=== PATIENT | male | born 1965 | race Hispanic/Latino ===

== ENCOUNTER 2018-01-18 03:53 | Emergency (ER) | payer OTHER ==
[~2018-01-18] VITALS: Ht 170.2 cm; Wt 135.6 kg
[~2018-01-18 03:53] MED LIST: AMLODIPINE BESYL5 MG PO; BENZONATATE200 MG PO; BYSTOLIC10 MG PO; GLIMEPIRIDE2 MG PO; KEFLEX250 MG; KEFLEX500 MG PO; LEVAQUIN500 MG PO; LOPERAMIDE2 MG PO; LOSARTAN POTASS25 MG; LOSARTAN POTASS50 MG PO; PREDNISONE20 MG PO; PROMETHAZINE-D118 ML PO; RANITIDINE HCL150 M1 PO; SIMVASTATIN20 MG PO; SIMVASTATIN80 MG PO; TAMSULOSIN HCL0.4 MG PO; TIZANIDINE HCL4 MG PO; VIAGRA100 MG PO; XIGDUO PO
[2018-01-18] MEDS ORDERED: ORPHENADRINE CITRATE 30 MG/ML VIAL IM ONE (04:15)
== END 2018-01-18 04:47 | disposition home or self-care (01) ==
LOC: ER 03:53
DX: M54.41 Lumbago with sciatica, right side (principal); I10 Essential (primary) hypertension; E11.9 Type 2 diabetes mellitus without complications; E78.5 Hyperlipidemia, unspecified; Z87.442 Personal history of urinary calculi
CPT/HCPCS: 99283; J2360

== ENCOUNTER → 2018-06-06 | Outpatient (CLI) | payer OTHER ==
--- NOTE | 2018-06-06 16:33 | Diagnostic Imaging Report ---
Exam: Right shoulder radiographs - 2 views History: Right shoulder impingement. Comparison: None. Findings: Mild degenerative changes of the right glenohumeral and acromioclavicular joints. No evidence of acute fracture, malalignment, or soft tissue abnormality. 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 No acute osseous abnormality. Signed by: Dr. Josh Hopkins MD on 06/06/2018 2:54 PM
== END ==
LOC: RAD 13:21
PROVIDERS: ATTEND Family Medicine
DX: M75.41 Impingement syndrome of right shoulder (principal)

== ENCOUNTER 2018-07-10 09:30 | Emergency (ER) | payer OTHER ==
[~2018-07-10] VITALS: Ht 170.2 cm; Wt 135.6 kg
--- OUTSIDE RECORDS SUMMARY | 2018-07-10 09:32 | XMS REPORT ---
Author Author [facility] Address Unknown Phone Unavailable Care Team Providers Care Cement Finisher Helper Name Role Phone Puneet WASHINGTON Unavailable Unavailable Problems This patient has no known problems. Allergies, Adverse Reactions, Alerts This patient has no known allergies or adverse reactions. Medications This patient has no known medications. Results Test Description Test Time Test Comments Text Results Atomic Results Result Comments SHOULDER RIGHT COMPLETE 2018-06-06 14:50:00 [place] [address] Patient Name: MICHELLE MANRIQUEZ MR #: [id number] : 1965 Age/Sex: 52/M Req #: [id number] [facility] Physician: Ordered by: FRANCISCO WASHINGTON MD Report #: [id number] Location: [facility] Room/Bed: Procedure: [id number] DX/SHOULDER RIGHT COMPLETE Exam Date: 06/06/18 Exam Time: 1335 REPORT STATUS: Signed Exam: Right shoulder radiographs - 2 views History: Right shoulder impingement. Comparison: None. Findings: Mild degenerative changes of the right glenohumeral and acromioclavicular joints. No evidence of acute fracture, malalignment, or soft tissue abnormality. 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 No acute osseous abnormality. Signed by: Dr. Micheline Hopkins MD on 06/06/2018 2:54 PM Dictated By: MICHELINE HOPKINS MD [id number] Transcribed By: LAUREANO on 06/06/18 1836 COPY TO: FRANCISCO WASHINGTON MD
[2018-07-10] MEDS ORDERED: SODIUM CHLORIDE 0.9% 1000ML 1,000 ML IV STA (09:57)
[2018-07-10 10:14] LABS: BASOPHILS # (AUTO) 0.1 (0.0-0.1); BASOPHILS % 0.6 % (0.0-1.0); EOSINOPHILS # (AUTO) 0.1 (0.0-0.4); EOSINOPHILS % 1.3 % (0.0-6.0); HEMATOCRIT 44.4 % (38.2-49.6); HEMOGLOBIN 14.7 g/dL (14.0-18.0); LYMPHOCYTES # (AUTO) 1.7 (1.0-3.2); LYMPHOCYTES % 16.6 % (18.0-39.1); MEAN CORPUSCULAR HEMOGLOBIN 29.7 pg (28-32); MEAN CORPUSCULAR HGB CONC 33.1 g/dL (31-35); MEAN CORPUSCULAR VOLUME 89.7 fL (81-99); MONOCYTES # (AUTO) 0.6 (0.2-0.8); MONOCYTES % 6.3 % (4.4-11.3); NEUTROPHILS # (AUTO) 7.6 (2.1-6.9); NEUTROPHILS % 74.8 % (38.7-80.0); PLATELET COUNT 258 x10e3/uL (140-360); RED BLOOD COUNT 4.95 x10e6/uL (4.3-5.7); RED CELL DISTRIBUTION WIDTH 12.9 % (11.7-14.4)
[2018-07-10 10:28] LABS: BILIRUBIN,URINE NEGATIVE (NEGATIVE); CLARITY,URINE HAZY (CLEAR); COLOR,URINE YELLOW (YELLOW); KETONES,URINE NEGATIVE (NEGATIVE); LEUKOCYTE ESTERASE ,URINE TRACE (NEGATIVE); NITRITE,URINE NEGATIVE (NEGATIVE); PROTEIN,URINE DIPSTICK 1+ (NEGATIVE); URINE UROBILINOGEN 0.2 mg/dL (0.2 - 1); WBC,URINE (MAN) 0-5 /HPF (0-5)
[2018-07-10 10:29] LABS: AMORPHOUS SEDIMENT,URINE FEW (FEW); RBC,URINE >50 /HPF (0-5)
[2018-07-10] MEDS ORDERED: ONDANSETRON HCL INJ 2MG/ML 2ML 2 MG/ML VIAL IV ONE ×2 (10:30→14:30)
[2018-07-10] MEDS ORDERED: KETOROLAC TROMETHAMINE 30 MG/ML VIAL IV ONE (10:30)
[2018-07-10 10:52] LABS: ALBUMIN 3.8 g/dL (3.5-5.0); ALBUMIN/GLOBULIN RATIO 1.3 (0.8-2.0); ANION GAP 14.9 mmol/L (8-16); CALCIUM 9.7 mg/dL (8.4-10.2); CREATININE, SERUM 1.64 mg/dL (0.72-1.25); MAGNESIUM 1.8 MG/DL (1.3-2.1); POTASSIUM 3.9 mmol/L (3.5-5.1)
[2018-07-10] MEDS: MORPHINE SULFATE INJ 4 MG/ML INJ 1ML IV ONE ×2 (14:07→14:49)
--- NOTE | 2018-07-10 14:42 | Diagnostic Imaging Report ---
EXAM: CT Abdomen and Pelvis WITHOUT contrast INDICATION: Stone protocol. COMPARISON: None. TECHNIQUE: Abdomen and pelvis were scanned utilizing a multidetector helical scanner from the lung base to the pubic symphysis without administration of IV contrast. Absence of intravenous contrast decreases sensitivity for detection of focal lesions and vascular pathology. Coronal and sagittal reformations were obtained. Renal stone protocol was performed. IV CONTRAST: None. ORAL CONTRAST: Water RADIATION DOSE: Total DLP: 1394.7 mGy*cm Estimated effective dose: (DLP x 0.015 x size factor) mSv COMPLICATIONS: None FINDINGS: LINES and TUBES: None. LOWER THORAX: Coronary atherosclerosis. HEPATOBILIARY: No focal hepatic lesions. No biliary ductal dilation. GALLBLADDER: No radio-opaque stones or sludge. No wall thickening. SPLEEN: No splenomegaly. PANCREAS: Fatty atrophy of the pancreas. No definite mass. ADRENALS: No adrenal nodules KIDNEYS/URETERS: There is mild right hydroureter without significant hydronephrosis. There are two adjacent 4 mm obstructing right mid ureteral stones on series 3, images 146 and 153. There is mild right perinephric and periureteral stranding. There is a 6 mm right mid pole non-obstructing stone and a 7 mm right lower pole non-obstructing stone. There are punctate nonobstructing 3 mm left upper pole and 1 mm left lower pole renal stones. No evidence of left-sided hydronephrosis. The left kidney appears mildly atrophic. No evidence of solid mass, although evaluation is limited in the absence of IV contrast. GI TRACT: No abnormal distention, wall thickening, or evidence of bowel obstruction. Appendix is normal. PELVIC ORGANS/BLADDER: Unremarkable. LYMPH NODES: No lymphadenopathy. VESSELS: There are scattered atherosclerotic calcifications in the aorta and branch vessels. PERITONEUM / RETROPERITONEUM: No free air or fluid. BONES: Mild age indeterminate anterior loss of vertebral body height at T11. No suspicious lytic or blastic lesions. IMPRESSION: Two obstructing 4 mm right mid ureteral stones with mild hydroureter and no significant hydronephrosis. Mild right perinephric and periureteral stranding could reflect infectious/inflammatory process and could be correlated with UA. Additional non-obstructing bilateral renal stones measuring up to 7 mm on the right and 3 mm on the left. Signed by: Dr. Josh Hopkins MD on 07/10/2018 2:39 PM
[2018-07-10] MEDS ORDERED: TRESIVA SC (15:07)
[2018-07-10] MEDS ORDERED: OMEPRAZOLE40 MG PO (15:07)
[2018-07-10] MEDS ORDERED: LOSARTAN POTASS25 MG PO (15:07)
[2018-07-10] MEDS ORDERED: BYSTOLIC10 MG PO (15:07)
[2018-07-10] MEDS ORDERED: ALLOPURINOL300 MG PO (15:07)
[2018-07-10] MEDS ORDERED: LIPITOR10 MG PO (15:07)
[2018-07-10] MEDS ORDERED: METFORMIN HCL500 MG PO (15:07)
[2018-07-10 15:47] VITALS: BP 145/73
== END 2018-07-10 15:59 | disposition home or self-care (01) ==
LOC: ER 09:30
DX: M54.5 Low back pain (principal); R10.31 Right lower quadrant pain; R11.0 Nausea; R31.9 Hematuria, unspecified; N20.1 Calculus of ureter; I10 Essential (primary) hypertension; E11.9 Type 2 diabetes mellitus without complications; E78.5 Hyperlipidemia, unspecified; G89.29 Other chronic pain
CPT/HCPCS: 36415; 74176; 80053; 81001; 83690; 83735; 85025; 87086; 99284; J1885; J2270; J2405; J7030

== ENCOUNTER 2018-09-14 16:10 | Observation (INO) | payer OTHER ==
[~2018-09-14] VITALS: Ht 170.2 cm; Wt 135.6 kg
[~2018-09-14 16:10] MED LIST changes: +ALLOPURINOL300 MG PO; +LIPITOR10 MG PO; +LOSARTAN POTASS25 MG PO; +METFORMIN HCL500 MG PO; +OMEPRAZOLE40 MG PO; +TRESIVA SC
--- OUTSIDE RECORDS SUMMARY | 2018-09-14 16:13 | XMS REPORT | Clinical Summary ---
Author Author [facility] Address Unknown Phone Unavailable Care Team Providers Care Nail Specialist Name Role Phone Barak Youngblood MD PCP Allergies Not on File Medications Not on file Active Problems Not on file Encounters Care Team Description Date Type Specialty Aime Herrera MD Kidney stone 07/22/2018 Hospital Radiology Encounter Aime Herrera MD Kidney stone (Primary Dx) 07/22/2018 Transcribe Access Orders after 09/13/2017 Social History Date Tobacco Use Types Packs/Day Years Used Never Assessed Sex Assigned at Date Recorded Not on file Industry Job Start Date Occupation Not on file Not on file Not on file Travel End Travel History Travel Start No recent travel history available. Last Filed Vital Signs Not on file Plan of Treatment Health Maintenance Due Date Last Done Comments COLON CANCER SCREENING 08/03/2015 SHINGLES VACCINES (#1) 08/03/2015 INFLUENZA VACCINE 12/22/2018 Procedures Comments Procedure Name Priority Date/Time Associated Diagnosis XR KUB KIDNEY URETER Routine 07/22/2018 Kidney stone BLADDER 10:11 AM HEAVY EQUIPMENT MECHANIC after 09/13/2017 Results * XR Kub Kidney Ureter Bladder (07/22/2018 10:11 AM HEAVY EQUIPMENT MECHANIC) Narrative Performed At EXAMINATION:XR KUB KIDNEY URETER BLADDER RADIANT CLINICAL HISTORY:N20.0 Calculus of kidney, N20.0 COMPARISON:None IMPRESSION: No definite renal calculi can be identified.There is a generally nonspecific bowel gas pattern. [id number] Procedure Note Hm Interface, Radiology Results Incoming - 07/22/2018 10:57 AM HEAVY EQUIPMENT MECHANIC EXAMINATION: XR KUB KIDNEY URETER BLADDER CLINICAL HISTORY: N20.0 Calculus of kidney, N20.0 COMPARISON: None IMPRESSION: No definite renal calculi can be identified. There is a generally nonspecific bowel gas pattern. [facility]-[id number] Performing Organization Address City/State/Zipcode Phone Number [place] [address] [place] [address] after 09/13/2017 Insurance Payer Benefit Subscriber ID Type Phone Address Plan / Group [facility] xxxxxxxxx HMO/PPO THCARE CHOICE/CHO ICE + Advance Directives Patient has advance care planning documents on file. For more information, tramaine garza contact: Regulo Randall [address] [place] [address]
[2018-09-14 17:13] LABS: BASOPHILS # (AUTO) 0.1 (0.0-0.1); BASOPHILS % 0.7 % (0.0-1.0); EOSINOPHILS # (AUTO) 0.2 (0.0-0.4); EOSINOPHILS % 1.7 % (0.0-6.0); HEMATOCRIT 41.1 % (38.2-49.6); HEMOGLOBIN 12.6 g/dL (14.0-18.0); LYMPHOCYTES # (AUTO) 1.3 (1.0-3.2); LYMPHOCYTES % 14.4 % (18.0-39.1); MEAN CORPUSCULAR HEMOGLOBIN 29.3 pg (28-32); MEAN CORPUSCULAR HGB CONC 30.7 g/dL (31-35); MEAN CORPUSCULAR VOLUME 95.6 fL (81-99); MONOCYTES # (AUTO) 0.7 (0.2-0.8); MONOCYTES % 7.6 % (4.4-11.3); NEUTROPHILS # (AUTO) 6.7 (2.1-6.9); NEUTROPHILS % 75.3 % (38.7-80.0); PLATELET COUNT 234 x10e3/uL (140-360); RED CELL DISTRIBUTION WIDTH 13.6 % (11.7-14.4)
[2018-09-14 17:16] LABS: CLARITY,URINE SL CLOUDY (CLEAR); COLOR,URINE YELLOW (YELLOW); LEUKOCYTE ESTERASE ,URINE NEGATIVE (NEGATIVE); NITRITE,URINE NEGATIVE (NEGATIVE)
[2018-09-14 17:17] LABS: BILIRUBIN,URINE NEGATIVE (NEGATIVE); KETONES,URINE NEGATIVE (NEGATIVE); PROTEIN,URINE DIPSTICK TRACE (NEGATIVE); URINE UROBILINOGEN 0.2 mg/dL (0.2 - 1)
[2018-09-14 17:24] LABS: BACTERIA,URINE FEW /HPF; EPITHELIAL CELLS,URINE RARE /LPF; MUCUS,URINE FEW (RARE)
[2018-09-14 17:28] LABS: INR 0.85; PROTHROMBIN TIME 12.1 seconds (11.9-14.5)
[2018-09-14 17:29] LABS: PARTIAL THROMBOPLASTIN TIME 25.8 seconds (23.8-35.5)
--- NOTE | 2018-09-14 17:32 | Diagnostic Imaging Report ---
EXAM: CHEST 2 VIEWS DATE: 09/14/2018 4:22 PM INDICATION:Left arm tingling COMPARISON: No prior chest examination available on PACS. FINDINGS: Lines and tubes: None Heart size normal. No focal pulmonary opacity, pleural effusion or pneumothorax. Upper abdomen unremarkable. No acute bony abnormality. There is mild wedging of the T12 vertebral body, which may be congenital or represent trauma of indeterminate age. IMPRESSION: No evidence for acute disease. Signed by: Dr. William Fajardo M.D. on 09/14/2018 5:29 PM
[2018-09-14 17:36] LABS: ALANINE AMINOTRANSFERASE 38 IU/L (0-55); ALBUMIN 3.3 g/dL (3.5-5.0); ALBUMIN/GLOBULIN RATIO 0.9 (0.8-2.0); ALKALINE PHOSPHATASE 85 IU/L (40-150); ANION GAP 12.9 mmol/L (8-16); BLOOD UREA NITROGEN 20 mg/dL (7-26); BUN/CREATININE RATIO 15 (6-25); CALCIUM 9.7 mg/dL (8.4-10.2); CARBON DIOXIDE 24 mmol/L (22-29); CHLORIDE 103 mmol/L (98-107); CREATINE KINASE 137 IU/L (30-200); CREATININE, SERUM 1.32 mg/dL (0.72-1.25); EST GLOMERULAR FILTRATION RATE 57 ML/MIN (60-); GLUCOSE 220 mg/dL (74-118); POTASSIUM 3.9 mmol/L (3.5-5.1); SODIUM 136 mmol/L (136-145)
[2018-09-14] MEDS ORDERED: SODIUM CHLORIDE 0.9% 500ML 500 ML IV STA (18:08)
--- NOTE | 2018-09-14 19:36 | Diagnostic Imaging Report ---
CT CHEST WITH CONTRAST HISTORY: Shortness of breath, pe protocol COMPARISON: None TECHNIQUE: CT scan of the chest WITH intravenous contrast, using standard protocol. Coronal and sagittal reformats are provided. IV CONTRAST: 100 cc of Isovue-370. RADIATION DOSE: Total DLP: 668.51 mGy*cm Dose modulation, iterative reconstruction, and/or weight based adjustment of the mA/kV was utilized to reduce the radiation dose to as low as reasonably achievable. COMPLICATIONS: None FINDINGS: Soft tissue attenuation partially limits sensitivity of the exam. Lines/tubes: None. Lungs and Airways: Low lung volumes result in bibasilar vascular crowding, accentuation of the pulmonary interstitial markings, central pulmonary vasculature, and the cardiac silhouette. Allowing for these limitations, the findings are as follows: A 4 mm right lower lobe pulmonary nodule. No consolidative pneumonia. Pleura: No effusion or pneumothorax. Heart and mediastinum: The thyroid gland is normal. Borderline cardiomegaly. Trace pericardial fluid. Abdomen: Limited evaluation of the upper abdomen. A 6 mm nonobstructing stone near the superior pole the left kidney. Lymph nodes: No pathologically enlarged lymph node identified. Vessels: Enlargement of the main pulmonary artery, 4.6 cm and the right pulmonary artery, 2.9 cm. Scattered atherosclerotic vascular calcifications, including the coronary arteries. Bones: No acute osseous lesion is identified. Healed left-sided rib fracture deformities. Mild thoracic kyphosis with minimal to mild multilevel degenerative disc changes. Soft tissues: Unremarkable IMPRESSION: 1. No pulmonary embolus. 2. An indeterminant 4 mm right lower lobe pulmonary nodule. In a patient with a significant smoking history or known malignancy, recommend a follow-up CT the chest without contrast in one year for surveillance. 3. Enlarged pulmonary arteries suggestive of increased pulmonary arterial pressure. 4. Coronary atherosclerosis. 5. A 6 mm nonobstructing left renal stone. Signed by: Dr. Jacinto Jennings D.O., M.M.M. on 09/14/2018 7:33 PM
[2018-09-14] MEDS ORDERED: ASPIRIN 81 MG CHEW TAB PO ONE (19:45)
--- OUTSIDE RECORDS SUMMARY | 2018-09-14 19:59 | XMS REPORT | Clinical Summary ---
Author Author [facility] Address Unknown Phone Unavailable Care Team Providers Care Radiology Aide Name Role Phone Barak Youngblood MD PCP [...] Routine 07/22/2018 Kidney stone BLADDER 10:11 AM MAINTENANCE MECHANIC after 09/13/2017 Results * XR Kub Kidney Ureter Bladder (07/22/2018 10:11 AM MAINTENANCE MECHANIC) Narrative Performed At EXAMINATION:XR KUB KIDNEY URETER BLADDER RADIANT CLINICAL HISTORY:N20.0 Calculus of kidney, N20.0 COMPARISON:None IMPRESSION: No definite renal calculi can be identified.There is a generally nonspecific bowel gas pattern. [id number] Procedure Note Hm Interface, Radiology Results Incoming - 07/22/2018 10:57 AM MAINTENANCE MECHANIC EXAMINATION: XR KUB KIDNEY URETER BLADDER CLINICAL HISTORY: N20.0 Calculus of kidney, N20.0 COMPARISON: None IMPRESSION: No definite renal calculi can be identified. There is a generally nonspecific bowel gas pattern. [facility]-[id number] Performing Organization Address City/State/Zipcode Phone Number [facility] [address] [place] [address] after 09/13/2017 Insurance Payer Benefit Subscriber ID Type Phone Address Plan / Group [facility] xxxxxxxxx HMO/PPO THCARE CHOICE/CHO ICE + Advance Directives Patient has advance care planning documents on file. For more information, tramaine garza contact: Regulo Randall [address] [place] [address]
[2018-09-14] MEDS ORDERED: DEXTROSE 50% SYRINGE 50 ML IV PRN (20:30)
[2018-09-14] MEDS ORDERED: HYDRALAZINE HCL 20 MG/ML VIAL IV PRN (20:30)
[2018-09-14] MEDS ORDERED: SODIUM CHLORIDE 0.9% 1000ML 1,000 ML ONE (21:43)
[2018-09-14] MEDS: INSULIN REGULAR, HUMAN 100 UNIT/1 ML 3ML VIAL SQ SCH (21:50)
[2018-09-14] MEDS ORDERED: IOPAMIDOL 370 MG/ML 200 ML INFUS..BTL INJ ONE (22:39)
[2018-09-14] MEDS ORDERED: SODIUM CHLORIDE 0.9% 50ML 50 ML ONE (22:39)
--- NOTE | 2018-09-14 22:44 | NUR ---
Pt arrived to the unit from er in admission assessment done a stretcher with c/o shortness of breath.aaox4.ambulates.Tele #[address] #18 g is patent.oriented to the unit.bed locked and in lowest position.phone and call light within reach.
[2018-09-14 22:46] VITALS: BP 144/71
[2018-09-14 23:00] VITALS: BP_SYST 144; BP_SYST 147; BP_DIAS 69; BP_DIAS 71
--- NOTE | 2018-09-15 02:02 | NUR ---
Pt is using his own c pap .
[2018-09-15 04:00] VITALS: BP 138/79
[2018-09-15 06:27] LABS: CREATINE KINASE 104 IU/L (30-200)
--- NOTE | 2018-09-15 06:50 | NUR ---
REPORT GIVEN TO THE ONCOMING RN.WALKING ROUNDS DONE.STABLE CONDITION.
[2018-09-15 06:54] LABS: CHOL/HDL RATIO 3.2 (3.9-4.7)
[2018-09-15] MEDS ORDERED: PANTOPRAZOLE SOD 40 MG TABEC PO SCH (07:30)
[2018-09-15] MEDS: INSULIN REGULAR, HUMAN 100 UNIT/1 ML 3ML VIAL SQ SCH ×2 (07:30→11:58)
--- NOTE | 2018-09-15 07:35 | NUR ---
RECEIVED PATIENT AWAKE RESTING IN BED NO SIGNS OF DISTRESS AT THIS TIME. CALL LIGHT IN REACH WILL CONTINUE TO MONITOR.
--- NOTE | 2018-09-15 07:49 | History and Physical ---
REASON FOR ADMISSION: The patient comes in with shortness of breath and dyspnea on exertion. HISTORY OF PRESENTING ILLNESS: Mr. Earnest Medellin is a 53-year-old gentleman with a history of shortness of breath. This has been started about a week ago. The patient was in my office, spirometry was done, which was normal. The patient had EKG, which showed some EKG changes. The patient was given referral to Dr. Santiago and was supposed to see Dr. Santiago on Wednesday. The patient went home and on ambulation, the shortness of breath exacerbated and the patient came into the emergency room with acute shortness of breath and dyspnea. No chest pain recorded, however, the patient does have some pain in the left arm after exertion. PAST MEDICAL HISTORY: History of gout, history of hypertension, history of hyperlipidemia, history of diabetes mellitus, uncontrolled; history of reflux esophagitis, and also history of ARAT. MEDICATIONS: Include allopurinol 300 mg daily, amlodipine 5 mg daily, atorvastatin 10 mg daily, glimepiride 2 mg daily, losartan 25 mg daily, metformin 500 mg daily, nebivolol 10 mg of Bystolic daily, omeprazole 40 mg daily, Viagra 100 mg daily, and also Tresiba 10 units at nighttime for diabetes control. PAST SURGICAL HISTORY: History of multiple kidney stones and one stent put in. Otherwise, dental surgeries. ALLERGIES: NO DRUG ALLERGIES NOTED. SOCIAL HISTORY: No smoker. No EtOH. No IV drug abuse. Lives with and recent history of upper respiratory tract infection also noted. FAMILY HISTORY: History of diabetes and history of hypertension. PHYSICAL EXAMINATION: GENERAL: The patient is alert and oriented x3. No acute distress at this time. The patient is also morbidly obese. VITAL SIGNS: Temperature is 96.8, pulse of 44, respirations of 22, blood pressure is 133/79, pulse oximetry of 96%. The patient also has additional history of sleep apnea. HEENT: Normocephalic and atraumatic. CVS: S1 and S2 distant, bradycardic. ABDOMEN: Nontender and nondistended. EXTREMITIES: Positive for 1+ edema bilaterally. LABORATORY VALUES: The patient's white count is 8.85, hemoglobin of 12.6, hematocrit of 44.1. Chemistries; sodium of 136, potassium 3.9, BUN 20, creatinine of 1.32, estimated GFR is 57, glucose of 220. CK, CK-MB, and troponin have been negative. LDL and HDL are pending at this time. Additional laboratory studies show a D-dimer of 0.67. PT/INR was normal. IMAGING: Chest CT shows no acute pulmonary embolism, indeterminate 4 mm lower lung lobe nodule, enlarged pulmonary arteries, increased pulmonary arterial pressure, coronary arthrosclerosis, and a 6 mm nonobstructing left renal stone. ASSESSMENT: 1. Acute dyspnea on exertion. 2. History of sleep apnea. 3. Obesity, hypoventilation syndrome. 4. Elevated D-dimer. 5. Uncontrolled diabetes mellitus. PLAN: With a CT negative and with all the risk factors, the patient needs cardiac workup, a consultation with Dr. Santiago has been established. Further recommendation per clinical course. With diabetes and hypertension and all the comorbidities, the patient will need cardiac testing. We will discuss with Dr. Santiago. Further recommendations per clinical course. MD LIONEL Gustafson/JENNIFERL /[id number]
[2018-09-15] MEDS ORDERED: GLIMEPIRIDE 2 MG TAB PO SCH (08:00)
[2018-09-15 08:04] VITALS: BP 171/77
[2018-09-15] MEDS ORDERED: LOSARTAN POTASSIUM 25 MG TAB PO SCH (09:00)
[2018-09-15] MEDS ORDERED: ASPIRIN 325 MG TAB EC PO SCH (09:00)
[2018-09-15] MEDS ORDERED: ALLOPURINOL 300 MG TAB PO SCH (09:00)
[2018-09-15] MEDS ORDERED: AMLODIPINE BESYLATE 5 MG TAB PO SCH (09:00)
[2018-09-15] MEDS ORDERED: INSULIN GLARGINE 100 UNITS/ML VIAL SQ SCH (09:00)
--- NOTE | 2018-09-15 10:25 | NUR ---
CASE MANAGEMENT ASSESSMENT Dumbwaiter Operator to bedside to discuss plan of care with patient/family. CM/SW role and care transitions discussed. Anticipated discharge plan discussed along with duration of care. CM/SW discussed patients right to make decisions in care. CM/SW work hours given. Patient lives: with Gracia Admit/Transfer: thru ED Hospital/ER visits since last admit: went to ER in June of this year for kidney stones, was not admitted. No other ER visits POA/Emergency contact: Gracia Medellin [phone] Current/Previous Home Health: none PCP/Follow-up Care: Dr. Youngblood - PCP; advised pt to follow up with MD within 7 days of discharge. Current/Previous DME: CPAP, nebulizer Medications (referring to index hospitalization or the first time you were in the hospital) a. Were changes made in your medications when you were in the hospital on [date of index hospitalization]? n/a b. Did you understand the changes? n/a c. Were you able to obtain your new medications right away? n/a d. Were you able to take your medications like the doctor wanted you to? n/a e. Did the hospital give you an accurate, easy to understand list of medications when you left? n/a Scale of 1-10 how comfortable does patient feel with disease management in outpatient settin Other Services: none Employment Status: employed with [employer] Areas of Concerns: chest pain Referral Needs: none Education Needs: medical management IMM/OLIVEIRA given and signed (if applicable): n/a Goal for discharge: home and back to work CM/SW left business card at the bedside with contact information. Name and number was also written on the patients whiteboard. Patient verbalized understanding of discussion. CM will follow-up with ongoing discharge and transition of care needs.
[2018-09-15 10:36] VITALS: BP 171/77
[2018-09-15 12:02] VITALS: BP 167/81
[2018-09-15] MEDS ORDERED: CLOPIDOGREL BISULFATE 75 MG TAB PO NR (12:30)
--- NOTE | 2018-09-15 15:10 | NUR ---
REMOVED PATIENTS IV. CATHETER TIP INTACT AND PRESSURE DRESSING APPLIED.
--- NOTE | 2018-09-15 15:18 | NUR ---
PATIENT DISCHARGED FROM FACILITY. PATIENT GATHERED ALL PERSONAL BELONGINGS, DISCHARGE INFORMATION, AND FOLLOW UP INFORMATION. PATIENT LEFT UNIT IN WHEELCHAIR AND WENT HOME VIA PRIVATE AUTO.
--- NOTE | 2018-09-15 19:59 | Consultation ---
DATE OF CONSULTATION: 09/15/2018 REASON FOR CONSULTATION: Chest pain. CHIEF COMPLAINT: Left arm pain, shortness of breath. HISTORY OF PRESENT ILLNESS: This is a 53-year-old male with history of hypertension, diabetes, cholesterol, morbid obesity, sleep apnea using CPAP, and kidney stones. The patient presents to [facility] ER with complaints of shortness of breath and left arm pain, tightness. Cardiology was consulted to evaluate the patient. The patient is seen in room, in no acute distress at this moment, however, does report on Wednesday, he has been short of breath, went to go see his PCP, when she has given a neb treatment, which he states shortness of breath was better. However, yesterday, he was at [facility], states that he became more short of breath and started to have some left arm pain, tightness. Therefore, he went home. However, his told him to go to the hospital and get further evaluated. He reports that the pain has subsided and is relieved after rest. However, he does report he is very short of breath with minimal activities that he has noticed for the past couple weeks. PAST MEDICAL HISTORY: Hypertension, hyperlipidemia, diabetes greater than 10 years, reflux, morbid obesity, kidney stones, and LISA. SURGICAL HISTORY: Denies any surgeries. ALLERGIES: DENIES ANY ALLERGIES. FAMILY HISTORY: Mother at age 40 apparently with? kidney failure. Father is alive at 75 years of age, apparently he had a history of stroke. He has one brother with history of kidney stones. SOCIAL HISTORY: He is . He works at [employer]. He rarely drinks alcohol and denies any alcohol or tobacco use. HOME MEDICATIONS: Include allopurinol 300 mg daily, Norvasc 10 mg daily, atorvastatin 10 mg daily, glimepiride 2 mg daily, losartan 25 mg daily, metformin 500 mg b.i.d., Bystolic 5 mg daily, omeprazole 40 mg daily, and Viagra 100 mg daily. REVIEW OF SYSTEMS: GENERAL: Denies any weight changes. Denies any fevers, chills, or night sweats. SKIN: No rashes or bruises. HEENT: Denies any nausea, vomiting, or vision changes. Positive for blurred vision. Denies any earaches, any epistaxis, bleeding gums, sore throat, or swollen neck. CARDIAC: Positive for anginal symptoms. Positive for dyspnea on exertion. Positive for orthopnea. Denies any PND or lower extremity edema. RESPIRATORY: Positive for shortness of breath. Denies any coughing or hemoptysis. GI: Reports good appetite. Denies any nausea, vomiting, any bleeding, hematemesis, melena, hematochezia, or abdominal pain. URINARY: Denies any urgency. Positive for frequency. Denies any dysuria or hematuria. VASCULAR: Denies any lower extremity edema or claudication. MUSCULOSKELETAL: Positive for generalized joint pains and back pain. NEUROLOGIC: Denies any numbness, tingling, tremors, blackouts, or seizures. HEMATOLOGY: Denies any anemia or easy bruising. ENDOCRINE: Denies any heat or cold intolerance, any polyuria, polydipsia, or polyphagia. PHYSICAL EXAMINATION: VITAL SIGNS: Temperature 97.8, pulse 51, respiratory rate 20, blood pressure 167/81, and pulse ox 98% on room air. GENERAL: Appears stated age, reliable informant. SKIN PAYNE: No rashes or bruises noted. HEENT: Normocephalic. Pupils are equal and reactive. Extraocular movements intact. Trachea midline. No JVD appreciated. No carotid bruit. Oral mucosa pink. No thyromegaly. HEART: Regular rate and rhythm. No murmurs, rubs, or clicks noted. PMI about 4th, 5th intercostal space. LUNGS: Bilateral breath sounds clear to auscultation. ABDOMEN: Soft, nontender, and nondistended. No organomegaly noted. However, the patient is morbidly obese. MUSCULOSKELETAL: Good muscle strength throughout. There is +1 lower extremity edema noted. Also some lipodermatosclerosis changes in the lower extremities. VASCULAR: +2 bilateral radial pulses, +1 DP and PT pulses bilaterally. NEUROLOGIC: Cranial nerves II through XII seem intact. LABORATORY DATA: Labs payne, white count 8, hemoglobin 12, hematocrit 41, and platelets 23. Sodium 136, potassium 3.9, bicarb 24, creatinine 1.3, and glucose 220. Troponin less than 0.001. LDL 76 and HDL 41. D-dimer is 0.67. IMAGING: Chest x-ray showing no acute abnormalities. CT of the chest; no PE, however, there is a right lower lobe pulmonary nodule 4 mm, enlarged pulmonary artery suggestive of increased pulmonary pressure. Also, a 6 mm left renal stone, non-obstructed. ASSESSMENT AND PLAN: 1. Exertional angina. 2. Hypertension. 3. Diabetes. 4. Hyperlipidemia. 5. Morbid obesity. 6. Obstructive sleep apnea. 7. Left pulmonary nodule. PLAN: 1. The patient presents with exertional anginal symptoms, so far enzymes are negative. 2. Discussed with the patient, we will go ahead and schedule a stress test for patient. 3. We will go ahead and get an echo to evaluate heart function and structure. 4. We will go ahead and we will place him on Plavix given the patient has a high pretest probability of CAD. 5. Continue aspirin and statin therapy. 6. Further recommendations as clinical course dictates. Thank you very much for this consult. Dictated by Aime Bruno NP Velvet Santiago MD DC/CHRIS /[id number]
--- NOTE | 2018-09-15 20:24 | Operative Report ---
DATE OF PROCEDURE: 09/15/2018 SURGEON: Reba Santiago MD TYPE OF REPORT: Exercise treadmill stress test. INDICATION FOR STUDY: Left arm pain, questionable equivalent angina. TECHNICAL DETAILS: After risks, benefits, pros and cons of today's exercise treadmill stress test explained to the patient, the patient agreed to proceed. The patient exercised on a Tristen protocol. He went for a total duration of 6 minutes and 56 seconds, terminating at the stage III of the protocol on account of leg fatigue and dyspnea. Heart rate went from a baseline of 51 beats per minute to a maximum of 120 beats per minute with target heart rate being 142 beats per minute. Blood pressure went from a baseline of 153/84 to a maximum of 214/96, which is an appropriate blood pressure response. Underlying EKG revealed normal sinus rhythm and normal axis and no ST-T wave changes, and at peak exercise, there was no ischemic EKG changes and there was no chest pain or arm pain with exercise. CONCLUSIONS: 1. Exercise treadmill stress test is negative for ischemic EKG changes or symptoms, albeit sensitivities of stress test is reduced some due to inability to achieve target heart rate. Hence, this is a submaximal stress test. 2. Reasonably good workload achieving a total of 7.0 METS of activity. 3. Finding of the stress test explained to the patient including limitations and after discussing with him, the patient wishes no further workup at this time rather want to follow up with us as an outpatient and further observation. Reba Santiago MD AMJ/MODL /[id number]
[2018-09-15] MEDS ORDERED: ATORVASTATIN 20 MG TAB PO SCH (21:00)
[2018-09-15] MEDS ORDERED: ATORVASTATIN 10 MG TAB PO SCH (21:00)
== END 2018-09-15 15:18 | disposition home or self-care (01) ==
LOC: ER 16:10 → ERHOLD 19:57 → INTOOBSV 19:57 → ERHOLD 19:59 → MED/SURG 22:46
PROVIDERS: ADMIT Family Medicine; ATTEND Family Medicine
DX: I20.8 Other forms of angina pectoris (principal); E66.2 Morbid (severe) obesity with alveolar hypoventilation; Z68.42 Body mass index [BMI] 45.0-49.9, adult; E78.5 Hyperlipidemia, unspecified; G47.33 Obstructive sleep apnea (adult) (pediatric); R91.1 Solitary pulmonary nodule; E11.9 Type 2 diabetes mellitus without complications; N20.0 Calculus of kidney
CPT/HCPCS: 36415 ×2; 71046; 71260; 80053; 80061; 81001; 82550 ×2; 82553 ×2; 82948 ×2; 83735; 84443; 84484 ×2; 85025; 85379; 85610; 85730; 93005; 93017; 93306; 99284; G0378 ×2; J1815; J1817; J7030; Q9967; S0164

== ENCOUNTER 2020-03-06 12:36 | Observation (INO) | payer OTHER ==
[~2020-03-06] VITALS: Ht 172.7 cm; Wt 142.9 kg
[2020-03-06] MEDS ORDERED: DEXTROSE 50% SYRINGE 50 ML IV PRN (15:15)
[2020-03-06 15:53] VITALS: BP 123/68
[2020-03-06] MEDS ORDERED: JARDIANCE25 MG PO (15:54)
[2020-03-06] MEDS ORDERED: METFORMIN HCL500 M2 PO (15:54)
[2020-03-06] MEDS ORDERED: PIOGLITAZONE HC45 MG PO (15:54)
[2020-03-06] MEDS ORDERED: POTASSIUM CITR10 MEQ PO (15:55)
[2020-03-06] MEDS ORDERED: HYDRALAZINE HCL25 MG PO (15:56)
[2020-03-06] MEDS ORDERED: CYMBALTA20 MG PO (15:57)
[2020-03-06] MEDS ORDERED: DILTIAZEM 24HR120 M1 PO (16:01)
[2020-03-06 16:07] LABS: BASOPHILS # (AUTO) 0.1 (0.0-0.1); BASOPHILS % 0.6 % (0.0-1.0); EOSINOPHILS # (AUTO) 0.1 (0.0-0.4); EOSINOPHILS % 0.6 % (0.0-6.0); HEMATOCRIT 43.6 % (38.2-49.6); HEMOGLOBIN 13.7 g/dL (14.0-18.0); LYMPHOCYTES # (AUTO) 1.2 (1.0-3.2); LYMPHOCYTES % 12.2 % (18.0-39.1); MEAN CORPUSCULAR HGB CONC 31.4 g/dL (31-35); MEAN CORPUSCULAR VOLUME 95.6 fL (81-99); MONOCYTES # (AUTO) 0.7 (0.2-0.8); MONOCYTES % 7.1 % (4.4-11.3); NEUTROPHILS # (AUTO) 7.9 (2.1-6.9); NEUTROPHILS % 79.3 % (38.7-80.0); PLATELET COUNT 217 x10e3/uL (140-360); RED BLOOD COUNT 4.56 x10e6/uL (4.3-5.7); RED CELL DISTRIBUTION WIDTH 14.1 % (11.7-14.4)
[2020-03-06 16:10] VITALS: BP 123/68
[2020-03-06 16:14] VITALS: BP 123/68
[2020-03-06 16:25] LABS: ALBUMIN 3.3 g/dL (3.5-5.0); ALBUMIN/GLOBULIN RATIO 1.1 (0.8-2.0); ANION GAP 13.1 mmol/L (8-16); CHOL/HDL RATIO 3.2 (3.9-4.7); CREATININE, SERUM 1.51 mg/dL (0.72-1.25); POTASSIUM 4.1 mmol/L (3.5-5.1)
[2020-03-06 16:44] LABS: THYROID STIMULATING HORMONE 1.436 uIU/mL (0.350-4.940)
[2020-03-06] MEDS ORDERED: HYDRALAZINE HCL 25 MG TAB PO SCH (17:00)
[2020-03-06] MEDS ORDERED: POTASSIUM CITRATE ER 10 MEQ TAB PO SCH (17:00)
[2020-03-06] MEDS: DULOXETINE HCL 20 MG DELAYED RELEASE PO SCH (17:37)
[2020-03-06] MEDS: HYDRALAZINE HCL 100 MG TABLET PO SCH (17:37)
[2020-03-06] MEDS: POTASSIUM CITRATE 1620 MG PO SCH (17:37)
[2020-03-06] MEDS: METFORMIN HCL 500 MG TAB CR PO SCH (17:37)
[2020-03-06] MEDS: INSULIN LISPRO 100 UNIT/1 ML 3ML VIAL SQ SCH ×2 (17:50→20:39)
[2020-03-06 20:00] VITALS: BP 139/68
[2020-03-06 20:24] VITALS: BP 139/68
[2020-03-06] MEDS: ATORVASTATIN 20 MG TAB PO SCH (20:40)
[2020-03-06] MEDS ORDERED: ATORVASTATIN 10 MG TAB PO SCH (21:00)
[2020-03-07] VITALS (7 sets, daily range): BP systolic 134–166; BP diastolic 69–83
[2020-03-07] MEDS ORDERED: SODIUM CHLORIDE 0.9% 1000ML 1,000 ML IV SCH (07:00)
[2020-03-07] MEDS: INSULIN LISPRO 100 UNIT/1 ML 3ML VIAL SQ SCH ×4 (07:30→20:55)
[2020-03-07] MEDS: POTASSIUM CITRATE 1620 MG PO SCH ×2 (08:00→16:47)
[2020-03-07] MEDS: METFORMIN HCL 500 MG TAB CR PO SCH ×2 (08:00→16:47)
[2020-03-07] MEDS ORDERED: REGADENOSON 0.4 MG/5 ML SYR IV ONE (08:31)
[2020-03-07] MEDS ORDERED: PIOGLITAZONE HCL 45 MG TAB PO SCH (09:00)
[2020-03-07] MEDS: DULOXETINE HCL 20 MG DELAYED RELEASE PO SCH ×2 (09:00→16:47)
[2020-03-07] MEDS: HYDRALAZINE HCL 100 MG TABLET PO SCH ×2 (09:00→16:47)
[2020-03-07] MEDS: ALLOPURINOL 300 MG TAB PO SCH (13:27)
[2020-03-07] MEDS: PIOGLITAZONE HCL 15 MG TAB PO SCH (13:27)
[2020-03-07] MEDS: PANTOPRAZOLE SOD 40 MG TABEC PO SCH (13:27)
[2020-03-07] MEDS: LOSARTAN POTASSIUM 25 MG TAB PO SCH (13:27)
[2020-03-07] MEDS: DILTIAZEM HCL ER 120 MG CAP PO SCH (13:27)
[2020-03-07] MEDS: EMPAGLIFLOZIN PO SCH (13:28)
[2020-03-07] MEDS ORDERED: CLOPIDOGREL BISULFATE 75 MG TAB PO ONE (18:20)
[2020-03-07] MEDS: SODIUM CHLORIDE 0.9% 1000ML 1,000 ML IV SCH (18:40)
[2020-03-07] MEDS: ATORVASTATIN 20 MG TAB PO SCH (20:53)
[2020-03-08] VITALS (13 sets, daily range): BP systolic 129–179; BP diastolic 64–97
[2020-03-08 05:38] LABS: BASOPHILS # (AUTO) 0.1 (0.0-0.1); BASOPHILS % 0.7 % (0.0-1.0); EOSINOPHILS # (AUTO) 0.2 (0.0-0.4); EOSINOPHILS % 2.2 % (0.0-6.0); HEMATOCRIT 42.7 % (38.2-49.6); HEMOGLOBIN 13.4 g/dL (14.0-18.0); LYMPHOCYTES # (AUTO) 1.2 (1.0-3.2); LYMPHOCYTES % 13.5 % (18.0-39.1); MEAN CORPUSCULAR HGB CONC 31.4 g/dL (31-35); MEAN CORPUSCULAR VOLUME 95.5 fL (81-99); MONOCYTES # (AUTO) 0.7 (0.2-0.8); MONOCYTES % 7.8 % (4.4-11.3); NEUTROPHILS % 75.6 % (38.7-80.0); PLATELET COUNT 207 x10e3/uL (140-360); RED BLOOD COUNT 4.47 x10e6/uL (4.3-5.7); RED CELL DISTRIBUTION WIDTH 13.8 % (11.7-14.4)
[2020-03-08 05:52] LABS: INR 0.9; PROTHROMBIN TIME 12.6 seconds (11.9-14.5)
[2020-03-08 06:01] LABS: ALANINE AMINOTRANSFERASE 14 IU/L (0-55); ALBUMIN 2.9 g/dL (3.5-5.0); ALKALINE PHOSPHATASE 63 IU/L (40-150); ANION GAP 12.4 mmol/L (8-16); BLOOD UREA NITROGEN 18 mg/dL (7-26); BUN/CREATININE RATIO 15 (6-25); CALCIUM 8.6 mg/dL (8.4-10.2); CARBON DIOXIDE 24 mmol/L (22-29); CHLORIDE 106 mmol/L (98-107); CREATININE, SERUM 1.24 mg/dL (0.72-1.25); EST GLOMERULAR FILTRATION RATE > 60 ML/MIN (60-); GLUCOSE 129 mg/dL (74-118); POTASSIUM 4.4 mmol/L (3.5-5.1); SODIUM 138 mmol/L (136-145)
[2020-03-08] MEDS: INSULIN LISPRO 100 UNIT/1 ML 3ML VIAL SQ SCH ×4 (07:30→21:34)
[2020-03-08] MEDS: POTASSIUM CITRATE 1620 MG PO SCH ×2 (08:00→19:37)
[2020-03-08] MEDS: SODIUM CHLORIDE 0.9% 1000ML 1,000 ML IV SCH (08:05)
[2020-03-08] MEDS: LOSARTAN POTASSIUM 25 MG TAB PO SCH (08:47)
[2020-03-08] MEDS: PIOGLITAZONE HCL 15 MG TAB PO SCH (08:47)
[2020-03-08] MEDS: DULOXETINE HCL 20 MG DELAYED RELEASE PO SCH ×2 (08:47→19:36)
[2020-03-08] MEDS: DILTIAZEM HCL ER 120 MG CAP PO SCH (08:47)
[2020-03-08] MEDS: ALLOPURINOL 300 MG TAB PO SCH (08:48)
[2020-03-08] MEDS: PANTOPRAZOLE SOD 40 MG TABEC PO SCH (08:48)
[2020-03-08] MEDS: HYDRALAZINE HCL 100 MG TABLET PO SCH ×2 (08:48→19:36)
[2020-03-08] MEDS: EMPAGLIFLOZIN PO SCH (08:48)
[2020-03-08] MEDS ORDERED: HEPARIN SOD/SOD CHLORIDE 2,000 ML ONE (14:09)
[2020-03-08] MEDS ORDERED: LIDOCAINE HCL 2% LOCAL 20 ML VIAL ONE (14:09)
[2020-03-08] MEDS ORDERED: FENTANYL CITRATE/PF 100MCG/2 ML INJ ONE (14:09)
[2020-03-08] MEDS ORDERED: IOPAMIDOL 370 MG/ML 200 ML INFUS..BTL INJ ONE (14:09)
[2020-03-08] MEDS ORDERED: VERAPAMIL HCL 2.5 MG/ML 2 ML VIAL ONE (14:09)
[2020-03-08] MEDS ORDERED: MIDAZOLAM HCL 2 MG/2 ML VIAL ONE (14:09)
[2020-03-08] MEDS ORDERED: SODIUM CHLORIDE 0.9% 1000ML 1,000 ML ONE (14:10)
[2020-03-08] MEDS ORDERED: ASPIRIN 325 MG TAB ONE (16:04)
[2020-03-08] MEDS ORDERED: CLOPIDOGREL BISULFATE 75 MG TAB ONE (16:04)
[2020-03-08] MEDS ORDERED: ONDANSETRON HCL INJ 2MG/ML 2ML 2 MG/ML VIAL IV PRN (16:30)
[2020-03-08] MEDS ORDERED: ATORVASTATIN 40 MG TAB PO SCH (21:00)
[2020-03-09 00:40] VITALS: BP 119/70
[2020-03-09] MEDS: SODIUM CHLORIDE 0.9% 1000ML 1,000 ML IV SCH ×2 (02:30→04:15)
[2020-03-09 04:00] VITALS: BP 159/78
[2020-03-09] MEDS ORDERED: CEPHALEXIN500 MG PO (04:43)
[2020-03-09] MEDS ORDERED: METFORMIN HCL500 M2 PO (04:43)
[2020-03-09] MEDS ORDERED: DICLOFENAC POTA50 MG (04:43)
[2020-03-09] MEDS ORDERED: OLMESARTAN-HCT1 EAC2 (04:43)
[2020-03-09] MEDS ORDERED: GLIMEPIRIDE4 MG (04:43)
[2020-03-09] MEDS ORDERED: MECLIZINE HCL12.5 MG PO (04:43)
[2020-03-09] MEDS ORDERED: ASPIRIN81 MG (04:43)
[2020-03-09] MEDS ORDERED: CLONIDINE HCL0.1 MG PO (04:43)
[2020-03-09] MEDS ORDERED: NATEGLINIDE120 MG (04:43)
[2020-03-09] MEDS ORDERED: NIFEDIPINE ER30 M1 PO (04:43)
[2020-03-09 05:38] LABS: BASOPHILS # (AUTO) 0.1 (0.0-0.1); BASOPHILS % 0.6 % (0.0-1.0); EOSINOPHILS # (AUTO) 0.1 (0.0-0.4); EOSINOPHILS % 1.7 % (0.0-6.0); HEMATOCRIT 48.4 % (38.2-49.6); HEMOGLOBIN 14.7 g/dL (14.0-18.0); LYMPHOCYTES # (AUTO) 0.8 (1.0-3.2); LYMPHOCYTES % 9.9 % (18.0-39.1); MEAN CORPUSCULAR HEMOGLOBIN 29.1 pg (28-32); MEAN CORPUSCULAR HGB CONC 30.4 g/dL (31-35); MEAN CORPUSCULAR VOLUME 95.8 fL (81-99); MONOCYTES # (AUTO) 0.6 (0.2-0.8); MONOCYTES % 7.2 % (4.4-11.3); NEUTROPHILS # (AUTO) 6.7 (2.1-6.9); NEUTROPHILS % 80.4 % (38.7-80.0); PLATELET COUNT 140 x10e3/uL (140-360); RED BLOOD COUNT 5.05 x10e6/uL (4.3-5.7); RED CELL DISTRIBUTION WIDTH 13.7 % (11.7-14.4)
[2020-03-09 07:10] LABS: ALANINE AMINOTRANSFERASE 15 IU/L (0-55); ALBUMIN 3.2 g/dL (3.5-5.0); ALBUMIN/GLOBULIN RATIO 1.1 (0.8-2.0); ALKALINE PHOSPHATASE 74 IU/L (40-150); ANION GAP 12.2 mmol/L (8-16); BLOOD UREA NITROGEN 15 mg/dL (7-26); BUN/CREATININE RATIO 13 (6-25); CALCIUM 8.9 mg/dL (8.4-10.2); CARBON DIOXIDE 25 mmol/L (22-29); CHLORIDE 105 mmol/L (98-107); CREATININE, SERUM 1.17 mg/dL (0.72-1.25); EST GLOMERULAR FILTRATION RATE > 60 ML/MIN (60-); GLUCOSE 141 mg/dL (74-118); POTASSIUM 4.2 mmol/L (3.5-5.1); SODIUM 138 mmol/L (136-145)
[2020-03-09 08:00] VITALS: BP 164/75
[2020-03-09] MEDS: POTASSIUM CITRATE 1620 MG PO SCH (08:00)
[2020-03-09 08:38] VITALS: BP 164/75
[2020-03-09] MEDS ORDERED: CLOPIDOGREL BISULFATE 75 MG TAB PO SCH (09:00)
[2020-03-09] MEDS: EMPAGLIFLOZIN PO SCH (09:00)
[2020-03-09] MEDS: PANTOPRAZOLE SOD 40 MG TABEC PO SCH (09:23)
[2020-03-09] MEDS: DULOXETINE HCL 20 MG DELAYED RELEASE PO SCH (09:23)
[2020-03-09] MEDS: DILTIAZEM HCL ER 120 MG CAP PO SCH (09:23)
[2020-03-09] MEDS: PIOGLITAZONE HCL 15 MG TAB PO SCH (09:23)
[2020-03-09] MEDS: HYDRALAZINE HCL 100 MG TABLET PO SCH (09:23)
[2020-03-09] MEDS: LOSARTAN POTASSIUM 25 MG TAB PO SCH (09:23)
[2020-03-09] MEDS: ALLOPURINOL 300 MG TAB PO SCH (09:24)
== END 2020-03-09 09:50 | disposition home or self-care (01) ==
LOC: MED/SURG 14:19
PROVIDERS: ADMIT Family Medicine; ATTEND Family Medicine
DX: I25.110 Atherosclerotic heart disease of native coronary artery with unstable angina pectoris (principal); E11.65 Type 2 diabetes mellitus with hyperglycemia; G47.33 Obstructive sleep apnea (adult) (pediatric); E66.01 Morbid (severe) obesity due to excess calories; Z68.42 Body mass index [BMI] 45.0-49.9, adult; Z11.59 Encounter for screening for other viral diseases
CPT/HCPCS: 36415 ×4; 78452; 80053 ×3; 80061; 82948 ×4; 84443; 84484 ×2; 85025 ×3; 85610; 92928; 93017; 93306; 93458; 96372; A9502; C1725; C1766; C1769 ×3; C1876 ×2; C1887; G0378 ×4; J2001; J2250; J2785; J3010; J7030 ×3; Q9967; S0164 ×2; U0002; 93454; 99152; 99153